=== PATIENT | female | born 1965 ===

== ENCOUNTER 2019-04-06 10:00 | Inpatient (IN) | payer OTHER ==
[~2019-04-06] VITALS: Ht 149.9 cm; Wt 75.0 kg
[2019-04-06] MEDS ORDERED: VITAMIN D35000 UNI1 PO (13:01)
[2019-04-06] MEDS ORDERED: ENALAPRIL MALEA10 MG PO (13:01)
[2019-04-06] MEDS ORDERED: B-12500 MCG PO (13:01)
[2019-04-06] MEDS ORDERED: MAGNESIUM500 MG PO (13:02)
[2019-04-10] MEDS ORDERED: ENALAPRIL MALEA10 MG PO (07:35)
== END 2019-04-10 09:52 | disposition home or self-care (01) | DRG 735 ==
LOC: O/R 10:00 → OB/GYN 04-09 05:27 → SURH 04-09 10:00 → OB/GYN 04-09 13:05
PROVIDERS: ADMIT Obstetrics & Gynecology Gynecologic Oncology
PROC: 0UT94ZZ Resection of Uterus, Percutaneous Endoscopic Approach (ICD-10-PCS; 2019-04-09)
PROC: 0UT74ZZ Resection of Bilateral Fallopian Tubes, Percutaneous Endoscopic Approach (ICD-10-PCS; 2019-04-09)
PROC: 0UT24ZZ Resection of Bilateral Ovaries, Percutaneous Endoscopic Approach (ICD-10-PCS; 2019-04-09)
PROC: 07TC4ZZ Resection of Pelvis Lymphatic, Percutaneous Endoscopic Approach (ICD-10-PCS; principal; 2019-04-09 08:45)
DX: C54.1 Malignant neoplasm of endometrium (principal); D36.0 Benign neoplasm of lymph nodes; I10 Essential (primary) hypertension